=== PATIENT | female | born 1985 | race Caucasian/White ===

== ENCOUNTER 2018-07-04 07:53 | Emergency (ER) | payer MEDICAID ==
[~2018-07-04] VITALS: Ht 160 cm; Wt 49.9 kg
[2018-07-04 08:07] VITALS: BP 142/94
[2018-07-04] MEDS ORDERED: ACETAMINOPHEN/CODEINE#3 (300/30mg) TAB PO ONE (09:45)
== END 2018-07-04 09:54 | disposition home or self-care (01) ==
LOC: ER 07:53
DX: S42.022A Displaced fracture of shaft of left clavicle, initial encounter for closed fracture (principal); N39.0 Urinary tract infection, site not specified; Z88.0 Allergy status to penicillin; V18.0XXA Pedal cycle driver injured in noncollision transport accident in nontraffic accident, initial encounter; Y93.89 Activity, other specified; Y99.8 Other external cause status; Y92.89 Other specified places as the place of occurrence of the external cause
CPT/HCPCS: 73030; 81002; 81025

== ENCOUNTER 2018-11-03 00:09 | Emergency (ER) | payer MEDICAID ==
[~2018-11-03] VITALS: Ht 157.5 cm; Wt 45.4 kg
[2018-11-03 01:15] LABS: Urine Pregnacy Test Negative (Negative)
[2018-11-03 01:21] LABS: Urine Bacteria FEW /hpf (None Seen); Urine Blood Negative /uL (Negative); Urine Mucus FEW (None Seen); Urine Specific Gravity 1.023 (1.001-1.035); Urine WBC 25 /hpf (0 - 5)
[2018-11-03 01:31] LABS: Alcohol, Urine < 3.0 mg/dL (0-5); Amphetamine Screen, Urine POSITIVE (NEGATIVE); Barbiturate Scree,Urine NEGATIVE (NEGATIVE); Benzodiazephine Screen, Urine NEGATIVE (NEGATIVE); Cannabinoid Screen, Urine NEGATIVE (NEGATIVE); Cocaine Screen, Urine NEGATIVE (NEGATIVE); Opiate Scree,Urine NEGATIVE (NEGATIVE); Phencyclidine Screen, Urine NEGATIVE (NEGATIVE)
[2018-11-03 02:37] VITALS: BP 128/84
== END 2018-11-03 03:58 | disposition home or self-care (01) ==
LOC: ER 00:09
DX: Z00.00 Encounter for general adult medical examination without abnormal findings (principal); F19.90 Other psychoactive substance use, unspecified, uncomplicated; Z88.0 Allergy status to penicillin
CPT/HCPCS: 80307; 81001; 81025; 93005

== ENCOUNTER 2020-01-19 17:54 | Emergency (ER) | payer MEDICAID ==
[~2020-01-19] VITALS: Ht 157.5 cm; Wt 47.6 kg
[2020-01-19 18:15] VITALS: BP 133/84
[2020-01-19] MEDS ORDERED: MAGNESIUM CITRATE SOLUTION 300 ML BTL PO ONE (20:30)
[2020-01-19] MEDS ORDERED: LACTULOSE 20Gm/30ML SOLN PO ONE (20:30)
[2020-01-19 20:38] LABS: Basophils # (auto) 0 10 ^3/uL (0-0.2); Basophils % (auto) 0.5 % (0.0-2.0); Eosinophils # (auto) 0.1 10 ^3/uL (0-0.8); Eosinophils % (auto) 0.7 % (0.0-7.0); Hematocrit 37.1 % (36.0-46.0); Hemoglobin 12.6 g/dL (12.2-16.2); Lymphocytes # (auto) 1.8 10 ^3/uL (0.4-5.4); Lymphocytes % (auto) 16.5 % (10.0-50.0); Mean Corpuscular Hemoglobin 31.3 pg (28.0-32.0); Mean Corpuscular Hgb Conc. 33.9 g/dL (32.0-36.0); Mean Corpuscular Volume 92.2 fL (80.0-100.0); Monocytes # (auto) 0.7 10 ^3/uL (0-1.3); Monocytes % (auto) 6.4 % (0.0-12.0); Neutrophils # (auto) 8.2 10 ^3/uL (1.6-8.6); Neutrophils % (auto) 75.9 % (37.0-80.0); Platelet Count (auto) 336 10^3/uL (140-450); Red Blood Cells 4.02 10^6/uL (4.0-5.20); Red Cell Distribution Width 12.5 % (11.8-14.3); White Blood Cell 10.8 10^3/uL (4.4-10.8)
[2020-01-19 20:55] LABS: Albumin 3.6 g/dL (3.4-5.0); Calcium 8.8 mg/dL (8.5-10.1); Potassium 3.6 mmol/L (3.5-5.1)
[2020-01-19 20:59] LABS: BUN/Creatinine Ratio 11.9; Bilirubin, Total 0.2 mg/dL (0.2-1.0); Total Protein 6.9 g/dL (6.4-8.2)
== END 2020-01-20 01:39 | disposition home or self-care (01) ==
LOC: ER 17:57
DX: K59.00 Constipation, unspecified (principal)
CPT/HCPCS: 36415; 74176; 76801; 80053; 84702; 85025

== ENCOUNTER 2022-08-19 16:45 | Emergency (ER) | payer MEDICAID ==
[~2022-08-19] VITALS: Ht 160 cm; Wt 47.0 kg
[2022-08-19 18:17] LABS: Urine Bacteria FEW /hpf (None Seen); Urine Blood 3+ /uL (Negative); Urine Hyaline Cast FEW /lpf (0 - 2); Urine Mucus FEW (None Seen); Urine Specific Gravity 1.024 (1.001-1.035); Urine WBC 13 /hpf (0 - 5)
[2022-08-19 20:12] VITALS: BP 127/79
[2022-08-19] MEDS ORDERED: IBUPROFEN 800 MG TAB PO ONE (21:00)
[2022-08-19] MEDS ORDERED: NITR-87 PO (22:49)
[2022-08-19] MEDS ORDERED: IBUP-1456 PO (22:49)
== END 2022-08-19 22:58 | disposition home or self-care (01) ==
LOC: ER 16:45
DX: S40.012A Contusion of left shoulder, initial encounter (principal); R07.81 Pleurodynia; M25.561 Pain in right knee; Z86.2 Personal history of diseases of the blood and blood-forming organs and certain disorders involving the immune mechanism; Z88.0 Allergy status to penicillin; V28.91XA Unspecified electric (assisted) bicycle rider injured in noncollision transport accident in traffic accident, initial encounter; Y93.89 Activity, other specified; Y92.89 Other specified places as the place of occurrence of the external cause; Y99.8 Other external cause status
CPT/HCPCS: 71101; 73030; 73562; 81001; 81025